=== PATIENT | female | born 1935 | race Caucasian/White ===

== ENCOUNTER 2019-05-12 10:20 | Inpatient (IN) ==
[2019-05-12] MEDS ORDERED: ATIVAN ONE (10:33)
[2019-05-12] MEDS ORDERED: ATIVAN IV ONE ×2 (10:44→10:45)
--- NOTE | 2019-05-12 10:55 | Diag Imaging Result Doc PS360 ---
EXAM: CT HEAD W/O CONTRAST 05/12/2019 HISTORY: ams TECHNIQUE: This exam was performed using automated exposure control, adjustment of mA or kV according to patient size, and/or use of iterative reconstruction technique. COMMENT: There is cortical encephalomalacia in the right parietal lobe and extensive abnormal lucency throughout the white matter of both cerebral hemispheres. There is no evidence of mass effect. There is a small amount of blood in a sulcus medially over the right parietal convexity. This was not present on 02/03/2018. The encephalomalacic changes were present previously however. The visualized paranasal sinuses are clear. The calvarium is intact. 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 This is presumably congenital. IMPRESSION: Chronic ischemic changes. A small focus of subarachnoid blood is present in the right parietal convexity of uncertain significance. This was not present previously. The findings were discussed with Kristopher Ruiz DO at 05/12/2019 10:52 AM. Electronically signed by Lam Angel 05/12/2019 10:53 AM
[2019-05-12] MEDS ORDERED: NICODERM PATCH TD ONE (11:20)
[2019-05-12 11:47] LABS: EOS# 0.02 X1000 (0.0-0.7); EOS% 0.3 % (0.0-10.0); HEMATOCRIT 36.9 % (37.0-47.0); HEMOGLOBIN 11.5 g/dL (12.0-16.0); LYMPH# 1.76 X1000 (1.2-3.4); LYMPH% 22.4 % (20.5-51.1); MCHC 31.2 g/dL (33-37); MCV 96.3 FL (81-99); MONO% 7.7 % (1.7-9.3); MPV 11.6 FL (7.4-10.4); NEUT# 5.46 X1000 (1.4-6.5); NEUT% 69.6 % (42.2-75.2); PLT 102 X1000 (130-400); RBC 3.83 XMIL (4.2-5.4); RDW 16.4 % (11.5-14.5); WBC 7.84 X1000 (4.8-10.8)
[2019-05-12 12:10] LABS: URINE SOURCE CATH
[2019-05-12 12:17] LABS: BILIRUBIN URINE NEGATIVE (NEGATIVE); BLOOD URINE NEGATIVE (NEGATIVE); COLOR STRAW; GLUCOSE URINE NEGATIVE (NEGATIVE); KETONE URINE NEGATIVE (NEGATIVE); LEUKOCYTES URINE LARGE (NEGATIVE); NITRITE URINE NEGATIVE (NEGATIVE); PROTEIN URINE NEGATIVE (NEGATIVE); SP GRAVITY URINE 1.012; TURBIDITY URINE CLEAR (CLEAR); UROBILINOGEN URINE NORMAL (NORMAL)
[2019-05-12 12:19] LABS: UR EPITHELIAL CELLS <10 /HPF (<10); URINE BACTERIA NEGATIVE /HPF; URINE RBC <10 /HPF (<10); URINE WBC 20-40 /HPF (<10)
--- NOTE | 2019-05-12 12:27 | PROVIDER DOCUMENTATION ---
This chart was entered by Arpit Campos Scribe, acting as scribe for Kristopher Ruiz DO. HPI-Neurological Disorder - General Stated Complaint: Stroke Like Symptoms Time Seen by Provider: 05/12/19 10:24 Source: family, EMS Unable to obtain history due to:: altered Allergies/Adverse Reactions: Patient Allergies Allergy/AdvReac Type Severity Reaction Status Date / Time amoxicillin trihydrate * AdvReac Mild YEAST Verified 10/03/12 12:33 [From Amoxil] INFECTION azithromycin [From Zithromax] AdvReac Mild YEAST Verified 10/03/12 12:33 INFECTION doxycycline AdvReac Mild YEAST Verified 10/03/12 12:33 INFECTION minocycline [Minocycline] AdvReac Mild YEAST Verified 10/03/12 12:33 INFECTION oxaprozin [From Daypro] AdvReac Mild YEAST Verified 10/03/12 12:33 INFECTION Home Medications: Home Medication List Medication Instructions Recorded Confirmed Last Taken Type Escitalopram [Lexapro] 10 mg PO DAILY 10/03/12 02/03/18 10/03/12 07:00 History Hydrocodone/Acetaminophen [Lortab 1 each PO Q8H PRN 10/03/12 02/03/18 08/24/12 History 7.5-500 Tablet] Simvastatin 40 mg PO DAILY 10/03/12 02/03/18 10/03/12 07:00 History Aspirin [Kalyn Chewable Aspirin] 81 mg PO DAILY 02/03/18 02/03/18 Unknown History Donepezil [Aricept] 10 mg PO DAILY 02/03/18 02/03/18 Unknown History Furosemide [Lasix] 20 mg PO DAILY 02/03/18 02/03/18 Unknown History Gabapentin [Neurontin] 300 mg PO BID 02/03/18 02/03/18 Unknown History Iron,Carbonyl/Ascorbic Acid [Fe C 1 each PO DAILY 02/03/18 02/03/18 Unknown History Tablet] Magnesium Oxide [Magnesium] 500 mg PO BID 02/03/18 02/03/18 Unknown History Metoprolol Tartrate 25 mg PO DAILY 02/03/18 02/03/18 Unknown History Mv-Mn/Iron/Folic Acid/Herb 190 1 each PO DAILY 02/03/18 02/03/18 Unknown History [Vitamin D3 Complete Caplet] Spironolactone [Aldactone] 25 mg PO EVERY OTHER DAY 02/03/18 02/03/18 Unknown History ATORVAstatin [Lipitor] 40 mg PO QHS 30 Days #30 tab 02/05/18 Unknown Rx Clopidogrel [Plavix] 75 mg PO DAILY 30 Days #30 tab 02/05/18 Unknown Rx - History of Present Illness-Neuro Nature of Presenting Problem: Pt is a 83 yo F brought to the ED by EMS. EMS reports the call came in at 0928 for a possible TIA. Report is the pt has had mulitple TIA's and this is how she acts when she is having one. EMS reports when on scene pt was GCS of 3 with some posturing and pin point pupils. He did report giving 2mg of Naercan with not change in symptoms. EMS says he did notice some incontinence and once in the truck pt did defecate on her self. Review of Systems - Adult - REVIEW OF SYSTEMS - ADULT ROS:: unobtainable per condition Constitutional: reports: no symptoms reported Past History - Adult - PAST MEDICAL HISTORY-ADULT Review of Records: reports: Old Records Reviewed, Nursing Assessment Review, Medications Reviewed Cardiovascular: reports: CAD, HTN Musculoskeletal: reports: osteoporosis Neurological: reports: dementia, TIA - PRIOR SURGERIES/PROCEDURES Surgical/Procedure History: reports: cardiac stent - IMMUNIZATION STATUS Childhood Immunizations: See Nurse Assessment Flu Vaccine: See Nurse Assessment - SOCIAL HISTORY Smoking: cigarettes, less than 1 pack/day Substance Use: none/never Living Situation: family Physical Exam- Neurological - Physical Exam-Neuro Initial Vital Signs Reviewed: Yes General Appearance: negative: appears well, alert (On arrival pt was awake shaking her upper extremities saying help and purposefully pinching with her right hand After 2mg Ativan pt did state her name. After an additional 2mg of Ativan the movement of upper extremites stopped.) Eye Exam: bilateral eye: abnormal pupil (pin point) HENMT: moist mucous membranes (some blood around mouth.), other (tounge has a bit kay) Head Injury: no evidence of injury. negative: active bleeding Neck: full range of motion, normal inspection Respiratory: lungs clear (O2 SAT 99% on 5 liters), normal breath sounds, no pleuratic chest pain, no respiratory distress, no accessory muscle use Cardiovascular: normal peripheral pulses, regular rate, rhythm Abdominal Exam: non tender, soft, other (Pt had defecated wearing a diaper.) Extremity: no pedal edema. negative: normal inspection (Pt was moving upper extremites with weakness to the left. Lower extremites were not moving), deformity stock room manager Exam: normal hearing. negative: normal speech, PERRL Coordination/Gait: negative: normal finger to nose, normal gait Motor/Sensory: negative Babinski's sign, weak motor strength LUE Neurologic: negative: grossly normal, no motor/sensory deficits Integumentary: normal color, normal turgor, warm/dry Psych/Mental Status: disoriented x 3. negative: normal mood/affect, oriented x 3 Progress - PLAN OF CARE/RESULTS Progress/Plan/Lab Results: Vital Signs - 8 hr 05/12/19 10:22 05/12/19 10:39 Pulse Rate 85 Respiratory Rate 27 H Blood Pressure 141/82 O2 Sat by Pulse Oximetry 85 L 99 Laboratory Results - last 24 hr 05/12/19 05/12/19 05/12/19 10:30 10:30 10:50 WBC 7.84 RBC 3.83 L Hgb 11.5 L Hct 36.9 L MCV 96.3 MCH 30.0 MCHC 31.2 L RDW Std Deviation 16.4 H Plt Count 102 L MPV 11.6 H Immature Gran % (Auto) 0.0 Neut % (Auto) 69.6 Lymph % (Auto) 22.4 Emery % (Auto) 7.7 Eos % (Auto) 0.3 Baso % (Auto) 0.0 Immature Gran # (Auto) 0.00 Neut # (Auto) 5.46 Lymph # (Auto) 1.76 Emery # (Auto) 0.60 H Eos # (Auto) 0.02 Baso # (Auto) 0.00 POC Glucose 137 H D Cbm-G-Pxftxwwsqyp Pept 301 Urine Source Urine Color Urine Turbidity Urine pH Ur Specific [place] Urine Protein Ur Glucose (Stick) Ur Ketones (Stick) Urine Blood Urine Nitrite Urine Bilirubin Urobilinogen Dipstick Urine Leukocytes Urine WBC (Auto) Urine RBC (Auto) U Epithel Cells (Auto) Urine Bacteria (Auto) 05/12/19 11:27 WBC RBC Hgb Hct MCV MCH MCHC RDW Std Deviation Plt Count MPV Immature Gran % (Auto) Neut % (Auto) Lymph % (Auto) Emery % (Auto) Eos % (Auto) Baso % (Auto) Immature Gran # (Auto) Neut # (Auto) Lymph # (Auto) Emery # (Auto) Eos # (Auto) Baso # (Auto) POC Glucose Yov-Y-Zhxzolehgiy Pept Urine Source CATH Urine Color STRAW Urine Turbidity CLEAR Urine pH 6.0 Ur Specific [place] 1.012 Urine Protein NEGATIVE Ur Glucose (Stick) NEGATIVE Ur Ketones (Stick) NEGATIVE Urine Blood NEGATIVE Urine Nitrite NEGATIVE Urine Bilirubin NEGATIVE Urobilinogen Dipstick NORMAL Urine Leukocytes LARGE A Urine WBC (Auto) 20-40 A Urine RBC (Auto) <10 U Epithel Cells (Auto) <10 Urine Bacteria (Auto) NEGATIVE Orders Category Date Time Status Rodney Cath Insertion ORDERED Care 05/12/19 11:30 Active Resuscitation Status Routine Care 05/12/19 12:23 Ordered Palliative Care Consult [OM.CSS] Routine Cons 05/12/19 12:[address] HEAD W/O CONTRAST [CT] Stat Exams 05/12/19 10:32 Completed CBC WITH ELECTRONIC DIFF [HEME] Stat Lab 05/12/19 10:30 Completed CK PROFILE [SP CHEM] Stat Lab 05/12/19 10:30 Received COMPREHENSIVE METABOLIC PANEL [CHEM] Stat Lab 05/12/19 10:30 Received PRO B-NATRIURETIC PEPTIDE Stat Lab 05/12/19 10:30 Completed UA [URINALYSIS W/POSS RFLX CULT] [URINALYSIS] Stat Lab 05/12/19 11:27 Completed Lorazepam [Ativan] Med 05/12/19 10:33 Discontinued 2 mg .ROUTE .STK-MED ONE Lorazepam [Ativan] Med 05/12/19 10:44 Discontinued 2 mg IV NOW ONE Lorazepam [Ativan] Med 05/12/19 10:45 Discontinued 2 mg IV NOW ONE Nicotine Patch [Nicoderm Patch] Med 05/12/19 11:20 Discontinued 21 mg TD NOW ONE Family reports to the physician pt is a DNR and says no heroic life saving measures. Result Diagrams: 05/12/19 10:30 - REASSESSMENT Reassessment #1 Time Reassessed: 11:13 (Pupil equal: no shift, sluggish.) Status: unchanged Reassessment #2 Time Reassessed: 11:18 Status: unchanged (I have informed the family of the small bleed. want supportive measures only) - CT/MRI 1 CT Study: Head Impression: Abnormal (EXAM: CT HEAD W/O CONTRAST 05/12/2019 HISTORY: ams TECHNIQUE: This exam was performed using automated exposure control, adjustment of mA or kV according to patient size, and/or use of iterative reconstruction technique. COMMENT: There is cortical encephalomalacia in the right parietal lobe and extensive abnormal lucency throughout the white matter of both cerebral hemispheres. There is no evidence of mass effect. There is a small amount of blood in a sulcus medially over the right parietal convexity. This was not present on 02/03/2018. The encephalomalacic changes were present previously however. The visualized paranasal sinuses are clear. The calvarium is intact. 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 This is presumably congenital. IMPRESSION: Chronic ischemic changes. A small focus of subarachnoid blood is present in the right parietal convexity of uncertain significance. This was not present previously. The findings were discussed with Kristopher Ruiz DO at 05/12/2019 10:52 AM. Electronically signed by Lam Angel 05/12/2019 10:53 AM 05/12/19 1053 Interpreting Physician: Lam Angel MD Dictated Date/Time: 05/12/19 1046 cc: Kristopher Ruiz DO; Juliana Corona MD), See EMR Report - CONSULTS/PCP/HOSPITALIST Notification #1 *Consult/PCP/Hospitalist*: Hospitalist: Accepts: Ayaz Time Discussed: 12:20 (Spoke with Martha) Reason/Comments: Admission Consult Disposition: Will see in ED Departure - Departure Date of Disposition Decision: 05/12/19 Time of Disposition Decision: 12:26 DIAGNOSIS: CVA (cerebral vascular accident) Qualifiers: CVA mechanism: thrombosis Precerebral and cerebral artery: anterior cerebral artery Laterality of affected vessel: right Qualified Code(s): 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 Attestation - Physician/ CATHERINE Attestation Patient care was provided by Advanced Practice Provider:: No The physician spent face to face time with patient:: Yes Advanced Practice Provider documentation review:: Supervising physician onsite and consulted in the evaluation and care of this patient. The physician did have a face to face encounter with the patient. This chart was documented by the indicated scribe, (Arpit Campos Scribe) and accurately reflects the services I performed and decisions made by Sara thompson Thomas E., DO, as attested by the provider's signature.
[2019-05-12] MEDS ORDERED: ZOFRAN IV PRN (12:54)
--- NOTE | 2019-05-12 13:19 | HISTORY AND PHYSICAL ---
HISTORY OF PRESENT ILLNESS: Ms. Leone apparently had a seizure or syncopal episode. Incontinent of bowel and bladder. Brought to the emergency room. The CT scan of the head suggested possible subarachnoid bleed in the right parietal convexity. Family would like to keep her here, keep her comfortable, no code level 1. PAST MEDICAL HISTORY: 1. Coronary artery disease. 2. COPD. 3. Hypertension. 4. History of supraventricular tachycardia. 5. Last admission I think was 02/03/2018. 6. Had a stent placed in LAD in 2002. Heart catheterization 2006 showed mild coronary artery disease, 50% stenosis of the 2nd diagonal branch of the LAD. SOCIAL HISTORY: , has 3 sons. She apparently had a history of TIA's in the past. ALLERGIES: Doxycycline, amoxicillin, Daypro. FAMILY HISTORY: Noncontributory according to old records. REVIEW OF SYSTEMS: Unable to get any review of systems. EXAM: General: She does try to open her eyes and does respond to voice and touch. Vital Signs: Pulse is 85, respirations 27, blood pressure 147/82. HEENT: Pupils are equal and round. CVP less than 6 cm. Lungs: Clear in all lung ferguson. Cardiovascular: Regular rhythm and rate without murmur or S3. Abdomen: Soft. Skin: Warm and dry. LABORATORY DATA: White count 7840, hematocrit is 36, platelet count 102,000. Urinalysis unremarkable. IMAGING STUDIES: CT of the head: Chronic ischemic changes, small focus of subarachnoid blood present in the right parietal convexity, uncertain significance. ASSESSMENT AND PLAN: Subarachnoid bleed. Seizure activity reported. Suspect tonic clonic seizure. She appears comfortable at the present time. Continue comfort measures. Looking at lab, her electrolytes are still pending. CBC fairly unremarkable. She has a mild anemia which is normocytic. MEDICATIONS: Lipitor 40 mg a day, aspirin 81 mg a day, Plavix 75 mg a day, Aricept 10 mg a day, Lexapro 10 mg a day, Lasix 20 mg a day, Neurontin 300 mg p.o. b.i.d., Lortab 7.5 q. 8 hours p.r.n., iron carbonyl/ascorbic acid combination 1 a day, magnesium 500 mg p.o. b.i.d., metoprolol 25 mg a day, multivitamin, simvastatin 40 mg a day and spironolactone. I think at this point she is obtunded and not swallowing, and we will hold all of her medicines. We will see if they desire a hospice consult or hospice evaluation maybe for inpatient. cc: Francisco Bradley MD
--- NOTE | 2019-05-12 13:25 | PROGRESS NOTE ---
DATE: 05/12/2019 ADDENDUM REPORT I met with 3 of her sons, and they describe her as having an episode starting with the left arm twitching and flailing and then rigidity in the body and loss of consciousness. She says she feels bad. Said she has had 4 or 5 of these episodes. Following that, she is lethargic and very sleepy at this time. She had incontinence of the bowel and bladder. So I suspect she is having a partial complex seizure, and we will put her on some Keppra. I explained this to them. Otherwise, go for comfort measures, and we will get an EEG on Tuesday. We will follow up with her electrolytes. I do not think those have come back yet. cc: Francisco Bradley MD
[2019-05-12 13:29] LABS: AGAP 12; ALB/GLOB RATIO 1.5; ALBUMIN 3.5 g/dL (3.5-5.0); ALKALINE PHOSPHATASE 64 U/L (32-104); BUN 9 mg/dL (8-22); CALCIUM 8.8 mg/dL (8.8-10.2); CHLORIDE 104 mmol/L (98-107); CK PROFILE 106 U/L (24-173); COSMO 279; CREATININE 0.6 mg/dL (0.5-0.9); ESTIMATED GFR > 60; GLUCOSE 88 mg/dL (70-104); GOT 13 U/L (10-30); GPT 7 U/L (10-36); POTASSIUM 3.1 mmol/L (3.5-5.1); SODIUM 141 mmol/L (136-145); TCO2 25 mmol/L (25-35); TOTAL BILIRUBIN 0.25 mg/dL (0.20-1.00); TOTAL PROTEIN 5.8 g/dL (6.3-8.3)
[2019-05-12] MEDS: KEPPRA 500 MG in NS 100 ML IV SCH (13:42)
[2019-05-12] MEDS: DUONEB (A & A) INH PRN (15:28)
--- NOTE | 2019-05-12 18:17 | EKG Report ---
Test Performed on : 05/12/2019 10:55:11 AM Test Reason : brain bleed Blood Pressure : / mmHG Vent. Rate : 069 BPM Atrial Rate : 069 BPM P-R Int : 160 ms QRS Dur : 074 ms QT Int : 420 ms P-R-T Axes : 016 014 116 degrees QTc Int : 450 ms Sinus rhythm. with premature atrial complexes. Cannot rule out Anterior infarct , age undetermined ST & T wave abnormality, consider lateral ischemia Abnormal ECG When compared with ECG of 03-FEB-2018 11:40, premature atrial complexes. are now present T wave inversion less evident in Anterior leads Unconfirmed Result
[2019-05-12] MEDS: MORPHINE IV PRN ×2 (18:57→21:36)
[2019-05-12] MEDS: ATIVAN IV PRN (23:10)
[2019-05-13] MEDS: KEPPRA 500 MG in NS 100 ML IV SCH ×2 (00:43→12:27)
[2019-05-13 08:42] LABS: AGAP 11; ALB/GLOB RATIO 1.3; ALBUMIN 3.4 g/dL (3.5-5.0); ALKALINE PHOSPHATASE 63 U/L (32-104); BUN 5 mg/dL (8-22); CALCIUM 8.9 mg/dL (8.8-10.2); CHLORIDE 105 mmol/L (98-107); COSMO 285; CREATININE 0.5 mg/dL (0.5-0.9); ESTIMATED GFR > 60; GLUCOSE 87 mg/dL (70-104); GOT 17 U/L (10-30); GPT 7 U/L (10-36); MAGNESIUM 1.5 mg/dL (1.5-2.7); POTASSIUM 2.7 mmol/L (3.5-5.1); SODIUM 145 mmol/L (136-145); TCO2 29 mmol/L (25-35); TOTAL BILIRUBIN 0.32 mg/dL (0.20-1.00)
[2019-05-13 08:47] LABS: BASO# 0.01 X1000 (0.0-0.2); BASO% 0.1 % (0.0-0.8); EOS# 0.05 X1000 (0.0-0.7); EOS% 0.4 % (0.0-10.0); HEMATOCRIT 40.2 % (37.0-47.0); HEMOGLOBIN 12.6 g/dL (12.0-16.0); LYMPH# 1.35 X1000 (1.2-3.4); LYMPH% 11.1 % (20.5-51.1); MCH 29.5 PG (27-31); MCHC 31.3 g/dL (33-37); MCV 94.1 FL (81-99); MONO# 0.95 X1000 (0.11-0.59); MONO% 7.8 % (1.7-9.3); MPV 11.5 FL (7.4-10.4); NEUT# 9.75 X1000 (1.4-6.5); NEUT% 80.6 % (42.2-75.2); PLT 69 X1000 (130-400); RBC 4.27 XMIL (4.2-5.4); WBC 12.11 X1000 (4.8-10.8)
[2019-05-13] MEDS: MORPHINE IV PRN ×3 (08:56→19:33)
[2019-05-13] MEDS ORDERED: NICODERM PATCH TD ONE (10:37)
--- NOTE | 2019-05-13 10:51 | PROGRESS NOTE ---
DATE: 05/13/2019 SUBJECTIVE: She is much more awake and alert. She is hungry, so will try and give her a soft diet. She has remained afebrile. OBJECTIVE: Neurologic: She is moving all extremities. She is awake. She is answering questions appropriately. Vital Signs: Temp 98.6 degrees, pulse 62, respirations 16, blood pressure 141/52. HEENT: Pupils are equal and round. Lungs: Clear in all lung ferguson. Cardiovascular: Regular rhythm and rate without murmur or S3. Abdomen: Soft. Skin: Warm and dry. Urine output is 3300 mL. ASSESSMENT AND PLAN: CT of her head that they did yesterday without contrast shows chronic ischemic changes. A small focus of subarachnoid blood is present in the right parietal convex of uncertain significance. This was not previously noted on comparison study, which I think was 02/03/2018. She does not have anything focal, but her description when she gets these spells is that she will start having tonic activity in the left arm, and then she will be very lethargic throughout the day, be very confused, disoriented, so I have started her on some Keppra, and will see if that helps. Will give her some soft diet, see how we are doing, and then get Physical Therapy and Occupational Therapy to work with her. I will switch her Keppra over to p.o. Will see how she does with soft diet. cc: Francisco Bradley MD
[2019-05-13] MEDS: DUONEB (A & A) INH PRN ×3 (11:12→19:45)
[2019-05-13] MEDS: ATIVAN IV PRN ×2 (16:19→20:19)
[2019-05-13] MEDS: CARDIZEM PO SCH ×2 (17:40→20:10)
[2019-05-13] MEDS ORDERED: CARDIZEM PO SCH (20:00)
[2019-05-14] MEDS: CARDIZEM PO SCH ×6 (01:48→22:47)
[2019-05-14] MEDS: KEPPRA 500 MG in NS 100 ML IV SCH ×2 (01:48→14:11)
[2019-05-14] MEDS: NICODERM PATCH TD SCH (08:07)
[2019-05-14 08:24] LABS: ESTIMATED GFR > 60
[2019-05-14 08:29] LABS: AGAP 15; BUN 5 mg/dL (8-22); CALCIUM 9.2 mg/dL (8.8-10.2); CHLORIDE 100 mmol/L (98-107); COSMO 282; CREATININE 0.5 mg/dL (0.5-0.9); GLUCOSE 92 mg/dL (70-104); MAGNESIUM 1.6 mg/dL (1.5-2.7); SODIUM 143 mmol/L (136-145); TCO2 28 mmol/L (25-35)
[2019-05-14 08:33] LABS: POTASSIUM 2.5 mmol/L (3.5-5.1)
[2019-05-14] MEDS ORDERED: KLOR-CON PO ONE ×2 (08:54→15:00)
--- NOTE | 2019-05-14 09:25 | PROGRESS NOTE ---
DATE: 05/14/2019 SUBJECTIVE: Ms. Leone was agitated, confused, given some Ativan, and she is sleeping. This morning she refused her breakfast. She is still pretty lethargic. OBJECTIVE: Vital Signs: Temperature 98.0 degrees, pulse 108, respirations 20, blood pressure 148/86. Eyes: Pupils are equal. Neck: No distended neck veins. Lungs: Lungs are clear in all lung ferguson. Cardiovascular exam: Regular rhythm and rate without murmur or S3. Abdomen: Abdomen is soft, nondistended. Extremities: No pedal edema. : Urine output is 2400 mL. She still has her Rodney catheter in. ASSESSMENT AND PLAN: 1. 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 I have started her on Keppra, and she has not had any seizure activity since she has been in the hospital. I think she did have some what appeared to be postictal lethargy, and I think she is still very tired. 2. Need to get her back on her home medications. 3. Underlying dementia with delirium, usually made worse when she is in the hospital. A CT of her head that we did on admission showed a possible subarachnoid bleed, but neurologically I do not know if that has really changed anything. REVIEW OF HER ORDERS: We put her on Cardizem 30 mg p.o. q. 6 hours and she is on levetiracetam 500 mg IV q. 12 hours. She received 2 mg IV of Ativan, and looking at her medications, she is on melatonin. We will continue that. She is on aspirin 81 mg a day. She is on Plavix 75 mg a day, which will resume. Her Aricept 10 mg a day, Lexapro 10 mg a day, furosemide she takes just to 10 mg a day; we will continue that. Gabapentin 300 mg t.i.d., and we will hold her hydrocodone for now. She is on iron carbonyl, ascorbic acid take once a day, magnesium oxide and we will put her back on it. Metoprolol 25 mg twice a day vitamin D with iron and folic acid and simvastatin. We are going to discontinue her Rodney catheter. We are going to get physical therapy and occupational therapy to see how we do moving around. Hopefully, we can go home soon. cc: Francisco Bradley MD
[2019-05-14] MEDS: ICAR-C PO SCH (10:44)
[2019-05-14] MEDS: LOPRESSOR PO SCH ×2 (10:44→22:47)
[2019-05-14] MEDS: LASIX PO SCH (10:44)
[2019-05-14] MEDS: LEXAPRO PO SCH (10:44)
[2019-05-14] MEDS: PLAVIX PO SCH (10:44)
[2019-05-14] MEDS: ASPIRIN PO SCH (10:45)
[2019-05-14] MEDS: ARICEPT PO SCH (10:45)
[2019-05-14] MEDS: NEURONTIN PO SCH ×4 (10:46→22:47)
[2019-05-14] MEDS: MAGNESIUM GLUCONATE PO SCH ×2 (14:19→22:47)
[2019-05-14] MEDS: THERA M PLUS PO SCH (14:24)
[2019-05-14] MEDS: MELATONIN PO SCH (22:46)
[2019-05-14] MEDS: ZOCOR PO SCH (22:47)
[2019-05-15] MEDS: MORPHINE IV PRN (01:39)
[2019-05-15] MEDS: KEPPRA 500 MG in NS 100 ML IV SCH ×2 (01:48→12:15)
[2019-05-15] MEDS: CARDIZEM PO SCH ×5 (05:09→20:37)
[2019-05-15] MEDS: LASIX PO SCH (08:42)
[2019-05-15] MEDS: NEURONTIN PO SCH ×3 (08:42→20:37)
[2019-05-15] MEDS: NICODERM PATCH TD SCH (08:42)
[2019-05-15] MEDS: LEXAPRO PO SCH (08:42)
[2019-05-15] MEDS: LOPRESSOR PO SCH ×2 (08:43→20:36)
[2019-05-15] MEDS: MAGNESIUM GLUCONATE PO SCH ×2 (08:43→20:36)
[2019-05-15] MEDS: ASPIRIN PO SCH (08:43)
[2019-05-15] MEDS: ICAR-C PO SCH (08:43)
[2019-05-15] MEDS: THERA M PLUS PO SCH (08:43)
[2019-05-15] MEDS: PLAVIX PO SCH (08:43)
[2019-05-15] MEDS: ARICEPT PO SCH (08:43)
[2019-05-15] MEDS ORDERED: FLU VACCINE IM ONE (08:56)
[2019-05-15] MEDS ORDERED: MAGNESIUM SULFATE 2 GM/S.W.I. 2 GM/50 ML IVPB IV ONE (09:34)
[2019-05-15] MEDS: DUONEB (A & A) INH PRN (11:12)
[2019-05-15 12:55] LABS: AGAP 13; ALB/GLOB RATIO 0.9; ALBUMIN 3.1 g/dL (3.5-5.0); ALKALINE PHOSPHATASE 77 U/L (32-104); BUN 11 mg/dL (8-22); CALCIUM 8.9 mg/dL (8.8-10.2); CHLORIDE 97 mmol/L (98-107); COSMO 277; CREATININE 0.5 mg/dL (0.5-0.9); ESTIMATED GFR > 60; GLUCOSE 141 mg/dL (70-104); GOT 19 U/L (10-30); GPT 9 U/L (10-36); POTASSIUM 3.4 mmol/L (3.5-5.1); SODIUM 138 mmol/L (136-145); TCO2 28 mmol/L (25-35); TOTAL BILIRUBIN 0.64 mg/dL (0.20-1.00); TOTAL PROTEIN 6.4 g/dL (6.3-8.3)
[2019-05-15] MEDS ORDERED: KLOR-CON PO ONE (15:14)
[2019-05-15] MEDS: POTASSIUM CHLORIDE 20 MEQ/SWI 20 MEQ/100 ML IVPB IV SCH (15:16)
--- NOTE | 2019-05-15 15:52 | PROGRESS NOTE ---
DATE: 05/15/2019 SUBJECTIVE: Today Ms. Leone refers to be feeling tired and worn out. She has not been wanting to participate with physical therapy today, I understand. OBJECTIVE: Vital signs: Blood pressure is 123/62, pulse of 73, respirations 14, temperature is 98.3 degrees. The patient is saturating 92%. General: Ms. Leone is an 83-year-old, elderly female. She is in bed. She does not seem to be in any cardiopulmonary distress. HEENT: Mucosa is pink, slightly dry. Anicteric. Acyanotic. Neck: Supple. I did not see any JVD. No carotid bruit. Chest: Good air entry bilateral. There were no crepitations, no rhonchi. Cardiovascular: Regular rate and rhythm. No murmurs. No rubs. No gallops. GI: Abdomen is soft. It is distended but nontender. Bowel sounds are present but hypoactive. Extremities: No pedal edema. DRILLER AND BROACHER: Patient is quite drowsy. You kind of have to talk to her multiple times to get her attention to do basic things. LABORATORY DATA: Sodium is 138, potassium is 3.4. Rest of chemistry is unremarkable. So far, the urine is showing Enterococcus faecalis from the 18th which is group D. CURRENT MEDICATIONS: Have all been reviewed. ASSESSMENT: 1. Altered mental status on presentation with abnormal movement of the left upper extremity, questionable shaking. Unsure if patient was having any form of seizures. She has been started on some Keppra. We will get an EEG and get Neurology to also see her. 2. Possible underlying dementia. 3. Electrolyte abnormality including hypokalemia and hypomagnesemia. We will continue to replace this. 4. Clinical volume depletion. Will continue with IV fluids. 5. Thrombocytopenia. That seems to be chronic. We will continue to follow. 6. Enterococcus faecalis in the urine. Ms. Leone is altered. Unsure if she was having any symptoms per se but because she is not able to give me any interim history, I think it is reasonable to treat her just to make sure this is not causing some of her altered mental status. 7. Previous history of right-sided middle cerebral artery territory infarct with remarkable encephalomalacia in the brain. cc: Edward Jacome MD
[2019-05-15] MEDS: D5 1/2 NS + KCL 20 MEQ 1,000 ML IV SCH (17:15)
--- NOTE | 2019-05-15 20:11 | CONSULTATION ---
DATE OF CONSULTATION: 05/15/2019 REASON FOR CONSULT: Seizure. HISTORY OF PRESENT ILLNESS: This is an 83-year-old female with a history of hypertension, coronary disease, SVT and TIA. She was admitted on 05/12/2019 after having an apparent seizure or syncopal episode. History is from chart review, as the patient is not a good historian and no family is currently available. It sounds as though EMS was called and the patient was poorly responsive. There was incontinence. Head CT showed a small amount of subarachnoid blood in the right parietal convexity. Family had opted to keep her here and keep her comfortable. They also reported that the patient has had in total about 4 or 5 episodes that started with left arm twitching and flailing and then rigidity of the body and loss of consciousness. She was lethargic and sleepy afterwards. There was incontinence of bowel and bladder. The patient was placed on Keppra. There have not been further events since hospitalized. She has actually become more awake during her stay. PAST MEDICAL HISTORY: 1. Coronary disease. 2. Hypertension. 3. Supraventricular tachycardia. 4. COPD. 5. TIA. 6. Reported dementia. FAMILY HISTORY: Noncontributory. SOCIAL HISTORY: She is . She has 3 sons. ALLERGIES: Reviewed in the chart. Multiple. CURRENT MEDICATIONS: Include levetiracetam 500 mg, q.12 hours p.r.n., lorazepam last dose 2 mg on the . REVIEW OF SYSTEMS: Balance of 12 conducted and otherwise negative except that detailed in the HPI. PHYSICAL EXAMINATION: Vital Signs: Temperature current 100.9. Blood pressure 141/82 on admission, current 135/91, pulse 70s to 80s. Neurologic: Ms. Leone is supine in bed. An EEG leads are being placed. She is awake and alert. She is not always attentive. She is a poor historian; and at times requires some redirecting. She follows simple commands. No language disturbance seen on bedside testing. No significant dysarthria. Her voice is raspy. Left pupil is 2 mm and reactive. Right pupil is about 2.5 mm and reactive. Gaze is conjugate. Ocular movements appear to be full. Face symmetric with equal activation. Facial sensation reported intact. Tongue is midline. She can hear. She feebly shrugs her shoulders. Her power appears to be relatively preserved in the limbs without obvious focal deficit. She does not participate well during strength testing. [id number] is intact on the right. On the left, she does not participate as readily. Reflexes are trace at the wrists, absent at the ankles. No clonus. Plantar response is silent. She responds to sensory stimulus in all extremities. I did not test her gait. DIAGNOSTICS: Head CT noncontrast, personally reviewed. There is an area of encephalomalacia within the right parietal lobe. There is also a small focus of subarachnoid blood in the right parietal convexity. LABS: Reviewed in the chart. White count 12. BUN and creatinine normal. AST and ALT normal. Calcium and magnesium normal. Normal sodium. Urine culture has been sent and is growing enterococcus. ASSESSMENT AND PLAN: Concern for seizures, though the timing of the events is unclear. She has been placed on Keppra and I would continue that dosage for now. An EEG has been ordered and I will review that. I would also recommend MRI and MRA of the brain. Thank you for the consultation. cc: Kavya Castellano MD [facility]
[2019-05-15] MEDS: MELATONIN PO SCH (20:36)
[2019-05-15] MEDS: ZOCOR PO SCH (20:37)
[2019-05-16] MEDS: KEPPRA 500 MG in NS 100 ML IV SCH ×2 (02:35→13:22)
[2019-05-16] MEDS: CARDIZEM PO SCH ×4 (02:39→21:56)
[2019-05-16] MEDS: LEVAQUIN 250 MG/D5W 250 MG/50 ML IVPB IV SCH (06:50)
[2019-05-16] MEDS: D5 1/2 NS + KCL 20 MEQ 1,000 ML IV SCH (06:52)
[2019-05-16 07:49] LABS: HEMATOCRIT 39.1 % (37.0-47.0); HEMOGLOBIN 12.4 g/dL (12.0-16.0); MCH 30.3 PG (27-31); MCHC 31.7 g/dL (33-37); MCV 95.6 FL (81-99); RBC 4.09 XMIL (4.2-5.4); RDW 16.7 % (11.5-14.5); WBC 16.07 X1000 (4.8-10.8)
[2019-05-16] MEDS: NEURONTIN PO SCH ×3 (08:16→21:57)
[2019-05-16] MEDS: ICAR-C PO SCH (08:17)
[2019-05-16] MEDS: ARICEPT PO SCH (08:17)
[2019-05-16] MEDS: THERA M PLUS PO SCH (08:17)
[2019-05-16] MEDS: MAGNESIUM GLUCONATE PO SCH ×2 (08:17→21:57)
[2019-05-16] MEDS: ASPIRIN PO SCH (08:17)
[2019-05-16] MEDS: LOPRESSOR PO SCH ×2 (08:17→21:58)
[2019-05-16] MEDS: PLAVIX PO SCH (08:17)
[2019-05-16] MEDS: LEXAPRO PO SCH (08:18)
[2019-05-16] MEDS: NICODERM PATCH TD SCH (08:18)
[2019-05-16 08:36] LABS: AGAP 9; BUN 14 mg/dL (8-22); CALCIUM 8.9 mg/dL (8.8-10.2); CHLORIDE 98 mmol/L (98-107); COSMO 274; CREATININE 0.5 mg/dL (0.5-0.9); ESTIMATED GFR > 60; GLUCOSE 132 mg/dL (70-104); PHOSPHORUS 2.1 mg/dL (2.7-4.5); POTASSIUM 3.6 mmol/L (3.5-5.1); SODIUM 136 mmol/L (136-145); TCO2 29 mmol/L (25-35)
--- NOTE | 2019-05-16 11:50 | PROGRESS NOTE ---
DATE: 05/16/2019 SUBJECTIVE: This morning, Ms. Leone refers to be doing well. She denies any new complaints. She just says she had a large bowel movement early on today. OBJECTIVE: Vital signs: Blood pressure is 139/69, pulse of 79, respirations 14 and temperature is 99.8 degrees. Patient is saturating 94 on room air. General exam: Ms. Leone is an 83-year- old, elderly female. She is in bed. She does not seems to be in any cardiopulmonary distress. HEENT: Mucosa is pink, slightly dry. Anicteric. Acyanotic. Neck: Supple. Chest: Good air entry bilaterally. I did not hear any crackles. No wheezing. Cardiovascular: Regular rate and rhythm. No murmurs, no rubs, no gallops. GI/Abdomen: Soft. Bowel sounds present. No hepatosplenomegaly. Extremities: No pedal edema. Central nervous system: Patient is awake, alert, follows basic commands, and she did not have any deficits. LABORATORY DATA: WBC is 16.07, hemoglobin is 12.4, platelet count of 93. Chemistry is also reviewed, unremarkable. X-RAY DATA: No recent imaging studies. The patient is pending an MRI. ASSESSMENT: 1. Altered mental status on presentation with a large abnormal movement of the left upper extremity, questionable for seizures. The patient was empirically started on Keppra. An electroencephalogram and magnetic resonance imaging have been ordered. Neurology has been consulted. 2. Dementia noted. 3. Electrolyte abnormality including hypokalemia and hypomagnesemia. We will continue to replace. 4. Clinical volume depletion improving. 5. Enterococcal faecalis urinary tract infection. The patient is on Levaquin. 6. Encephalomalacia on the right hemispheric cortex with encephalomalacia on imaging studies noted. PLAN: So, in general, I think Ms. Leone is clinically stable. She has not had any more abnormal shaking of her right upper extremity. She has been evaluated by Neurology. We will continue with the Keppra. We will continue also doing her neurological workup. She was a potential discharge to a rehab. 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 cc: Edward Jacome MD
[2019-05-16] MEDS: NEUTRA-PHOS PO SCH ×3 (13:23→21:57)
--- NOTE | 2019-05-16 14:03 | Diag Imaging Result Doc PS360 ---
EXAM: MRI BRAIN W/WO CONTRAST 05/16/2019 HISTORY: seizures TECHNIQUE: Sagittal and axial T1, post gadolinium in enhanced axial T1 and coronal reformation, axial T2, FLAIR, DWI and coronal gradient echo. COMMENT: The current study is compared with the previous examination of 02/03/2018. There is increased T2-weighted signal intensity in the mariela and midbrain and extensively over the right matter of both cerebral hemispheres. There is cortical and subcortical encephalomalacia present in the posterior right parietal lobe which was also present at the time the previous study. There is no evidence of restricted diffusion. There are no abnormal fluid collections or bleeds. There is no evidence of abnormal gadolinium enhancement. IMPRESSION: Extensive chronic ischemic change. Old right parietal infarct. Electronically signed by Lam Angel 05/16/2019 2:01 PM
--- NOTE | 2019-05-16 19:14 | EEG REPORT ---
DATE: 05/15/2019 REFERRING: Dr. Jacome. PAPER LATCHER: Kaykay Crawford. BACKGROUND INFORMATION: Technique: This is a digitally recorded routine EEG with video. HISTORY: 83-year-old female patient with question of seizure. EEG is ordered to detect evidence of seizures. Medications include p.r.n. lorazepam, Aricept, Lexapro, morphine, Neurontin. EEG FINDINGS: A posterior dominant alpha rhythm is not seen. The background at maximal alertness consists of theta more than delta slowing with some intermixed faster frequencies. No definite persistent focal slowing. No epileptiform discharges. No seizures. Hyperventilation is not performed. Photic stimulation does not alter the record. The patient becomes drowsy, but stage N2 sleep is not seen. EKG demonstrates some irregularity with the intervals. IMPRESSION AND CLINICAL CORRELATION: Abnormal routine EEG due to moderate diffuse slowing indicative of a moderate nonspecific encephalopathy. No epileptiform discharges or seizures seen on the current study. This does not rule out an underlying seizure disorder. cc: MD Edward Valencia MD MTDD
[2019-05-16] MEDS: ZOCOR PO SCH (21:57)
[2019-05-16] MEDS: MELATONIN PO SCH (21:57)
[2019-05-17] MEDS: CARDIZEM PO SCH ×4 (03:43→22:29)
[2019-05-17] MEDS: KEPPRA 500 MG in NS 100 ML IV SCH ×2 (03:43→13:15)
[2019-05-17] MEDS: LEVAQUIN 250 MG/D5W 250 MG/50 ML IVPB IV SCH (05:40)
--- NOTE | 2019-05-17 06:08 | NEUROLOGY PROGRESS NOTE ---
DATE: 05/16/2019 SUBJECTIVE: No major overnight events. There has not been report of recurrent seizure-like events. She seems to be tolerating Keppra. OBJECTIVE: T-max today is 99.8, blood pressure 124/55, and pulse 70. Ms. Leone is supine in bed. She is awake with eyes open. She is alert. She seems more attentive today. She is a bit irritable. She is not oriented to time. She does not participate at all with questions or with the exam. Pupils are equal today and nearly pinpoint but reactive. Gaze is conjugate. Full lateral eye movements. Face appears to be symmetric with equal activation. She refuses strength testing today. LABORATORY/DIAGNOSTIC: MRI of the brain with and without contrast did not show acute findings. There is the old encephalomalacia in the right parietal region. There are extensive chronic changes. EEG was personally reviewed showing moderate diffuse slowing indicative of a moderate nonspecific encephalopathy. Labs reviewed in the chart. She is being treated for UTI. ASSESSMENT AND PLAN: Presumed seizures with the description that found it to be an onset involving the left side of the body. She was started on Keppra, and has tolerated the current dosing. She is a little irritable today so we will need to monitor that. We might consider switching to a different antiepileptic medication. Seizure precautions. cc: Kavya Castellano MD
[2019-05-17] MEDS: NICODERM PATCH TD SCH (08:27)
[2019-05-17] MEDS: NEUTRA-PHOS PO SCH ×4 (08:27→22:29)
[2019-05-17] MEDS: THERA M PLUS PO SCH (08:27)
[2019-05-17] MEDS: LOPRESSOR PO SCH ×2 (08:28→22:28)
[2019-05-17] MEDS: ICAR-C PO SCH (08:28)
[2019-05-17] MEDS: ASPIRIN PO SCH (08:28)
[2019-05-17] MEDS: ARICEPT PO SCH (08:28)
[2019-05-17] MEDS: LEXAPRO PO SCH (08:28)
[2019-05-17] MEDS: MAGNESIUM GLUCONATE PO SCH ×2 (08:28→22:29)
[2019-05-17] MEDS: PLAVIX PO SCH (08:28)
[2019-05-17] MEDS: NEURONTIN PO SCH ×3 (08:38→22:28)
--- NOTE | 2019-05-17 16:58 | Diag Imaging Result Doc PS360 ---
EXAM: CHEST-PORTABLE HISTORY: Bed placement TECHNIQUE: Single view COMPARISON: 10/04/2012 FINDINGS: There is a small left pleural effusion. The heart is mildly prominent. Mild increased interstitial markings in the lung bases. IMPRESSION: Basilar atelectasis versus infiltrates Electronically signed by Shaheen Schroeder 05/17/2019 4:56 PM
[2019-05-17] MEDS: MORPHINE IV PRN ×2 (18:07→22:35)
--- NOTE | 2019-05-17 18:56 | PROGRESS NOTE ---
DATE: 05/17/2019 SUBJECTIVE: This morning Ms. Leone referred to be doing fairly okay. Did not have any new complaints. Has not had any more seizures during the hospital course. OBJECTIVE: Vital signs: Blood pressure is 117/56, pulse of 83, respirations 14, temperature 98.2 degrees. The patient is saturating 95% on room air. General: Ms. Leone is an 89-year-old lady. She is in bed, no distress. HEENT: Mucosa is pink and moist. Anicteric. Acyanotic. Neck: Supple. There is no JVD. Chest: Good air entry bilaterally. No crepitations. No rhonchi. Cardiovascular: Regular rate and rhythm. No murmurs. No rubs. No gallops. GI: Abdomen is soft, distended but nontender. Bowel sounds are present. There is no hepatosplenomegaly. : Not examined. Extremities: No pedal edema. Distal pulses are present. ACTIVITY ASSISTANT: Patient is awake, alert, oriented to person but disoriented to time and to place. Vasu Lee, however, follows basic commands and moves all extremities. Patient is eating about 75% of her meals per documentation. LABORATORY DATA: None for today. ASSESSMENT: 1. Altered mental status on presentation associated with abnormal movement of the left upper extremity, questionable for seizures. The patient has been started on Keppra. Neurology has been consulted. Both MRI and EEG have been fairly unremarkable. 2. Dementia. 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 3. 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 4. Electrolyte abnormality on presentation, replaced. 5. Clinical volume depletion, improved. 6. Enterococcal faecalis urinary tract infection. Patient is on Levaquin. Today is day 1 for a total of 5 days. PLAN: So in general, I think Ms. Leone is doing a lot better. She has not had any more shakes or any seizure activity during the hospital course. She has been evaluated twice by physical therapy during the hospital course. We are pending possible rehab placement for Ms. Leone tomorrow. cc: Edward Jacome MD
--- NOTE | 2019-05-17 20:35 | NEUROLOGY PROGRESS NOTE ---
DATE: 05/17/2019 Dr. Castellano saw Ms. Leone for initial Neurology evaluation. She has baseline dementia treated with donepezil. She had recent onset of behavior suggesting focal motor seizure involving the left arm. Workup includes imaging, brain MRI with and without contrast showing old right parietal infarction and no definite acute change. EEG showed generalized slowing. She was started on levetiracetam 500 mg b.i.d., and she appears to be tolerating that dose. Creatinine is 0.5. Hospital chart shows p.r.n. lorazepam with no dose in nearly 4 days, p.r.n. morphine with no dose in nearly 4 days. Home medicine list included gabapentin 300 mg t.i.d. If she was taking that, there would have been some slight reduced seizure risk associated with that dose. This morning, she is awake, alert, attentive, and disoriented. She denied being in the hospital. Speech is not significantly dysarthric. She has good power in the arms. She is slightly more clumsy with left [id number]-[id number] than with the right. There was a little bit of tremulousness in the left arm, but no classifiable tremor and no clonic activity noted. I do not have anything to add to Dr. Castellano's thoughts and suggestions. If there is concern for personality change, we might choose seizure medicine other than levetiracetam for longer term management. Thanks for asking Neurology to see Ms. Leone. cc: MD ROHAN Duaret III
[2019-05-17] MEDS: MELATONIN PO SCH (22:28)
[2019-05-17] MEDS: ZOCOR PO SCH (22:28)
[2019-05-18] MEDS: KEPPRA 500 MG in NS 100 ML IV SCH ×2 (01:34→13:10)
[2019-05-18] MEDS: CARDIZEM PO SCH ×3 (01:34→13:10)
[2019-05-18] MEDS: LEVAQUIN 250 MG/D5W 250 MG/50 ML IVPB IV SCH (04:31)
[2019-05-18] MEDS ORDERED: DUONEB (A & A) ONE (07:18)
[2019-05-18] MEDS: ICAR-C PO SCH (08:50)
[2019-05-18] MEDS: LEXAPRO PO SCH (08:50)
[2019-05-18] MEDS: ARICEPT PO SCH (08:50)
[2019-05-18] MEDS: LOPRESSOR PO SCH (08:50)
[2019-05-18] MEDS: MAGNESIUM GLUCONATE PO SCH (08:50)
[2019-05-18] MEDS: ASPIRIN PO SCH (08:50)
[2019-05-18] MEDS: PLAVIX PO SCH (08:50)
[2019-05-18] MEDS: NICODERM PATCH TD SCH (08:50)
[2019-05-18] MEDS: NEUTRA-PHOS PO SCH ×2 (08:50→13:10)
[2019-05-18] MEDS: THERA M PLUS PO SCH (08:50)
[2019-05-18] MEDS: NEURONTIN PO SCH (09:25)
[2019-05-18] MEDS: MORPHINE IV PRN (09:34)
[2019-05-18 11:22] VITALS: BP 114/53
--- NOTE | 2019-05-18 12:27 | DISCHARGE SUMMARY ---
ADMISSION DATE: 05/12/2019 DISCHARGE DATE: 05/18/2019 DISPOSITION: [facility]. CONSULTATION DURING ADMISSION: Neurology was consulted. Patient was seen by Dr. Castellano and followed up by Dr. Penaloza. INVASIVE PROCEDURES DONE DURING ADMISSION: None. IMAGING STUDIES OF SIGNIFICANCE: A CT scan of the chest showed chronic ischemic changes, small focus of subarachnoid hemorrhage. Subarachnoid bleeds present in the right parietal convex of uncertain significance. An MRI of the brain did show extensive chronic changes and old right parietal infarct. A chest x-ray reveals bibasilar atelectasis versus infiltrates. ADMISSION DIAGNOSES: 1. Questionable subarachnoid bleed. 2. Seizure activity. DIAGNOSES AT TIME OF DISCHARGE: 1. Altered mental status on presentation associated with abnormal movement of the right upper extremity, questionable for seizures. EEG was unremarkable for any epileptiform discharges. MRI did make mention of some chronic changes. 2. 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 3. 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 4. Electrolyte abnormality including hypokalemia and hypophosphatemia were all replaced. 5. Clinical volume depletion on admission improved. 6. Enterococcal faecalis urinary tract infection. Patient is on Levaquin for a total of 5 days. 7. Atrial fibrillation during the hospital course is rate controlled on Cardizem. The patient has CHADS Vasc score of at least 4. He has been started on low-dose Eliquis, and continue with the metoprolol and long-acting diltiazem. 8. History of coronary artery disease status post stent in LAD in the 2013, and subsequently in 2017. A left heart catheterization is documented to have shown about 50% stenosis. The patient is on aspirin and Plavix as well as statin and beta jailyn. However, because of adding Eliquis to the antithrombotic therapy, aspirin will be discontinued. PRESENTING COMPLAINT: Seizures, query syncopal episode. HISTORY OF PRESENTING COMPLAINT: Ms. Leone is an 83-year-old elderly female who was brought into the emergency room apparently because she has some shaking of the left upper extremity. Questionable also incontinent of bowel and bladder. She was evaluated and was suspected to have had possible seizures so she was admitted to the medical floor for further evaluation. HOSPITAL COURSE: Ms. Leone was admitted to the medical floor. She was found to be volume depleted. She was adequately fluid resuscitated. She did have some other electrolyte abnormalities including low potassium and low phosphorus, which were all replaced. A urine did come back positive for urinary tract infection, Enterococcus faecalis as the pathogen which was sensitive to levofloxacin. She was on IV Levophed for 2 days. We will continue 3 more days for a total of 5 days in the rehab. Ms. Leone was started on Keppra for the possible seizures. A CT scan did mention possible bleed. However, a follow-up MRI only showed extensive chronic ischemic changes, and also an old right parietal encephalomalacia from previous stroke. The patient was evaluated by Neurology. During the hospital course, Ms. Leone did not have any more seizures or any seizure-like activity. She has been tolerating her diet. It is documented that she takes about 75%. She has also had regular bowel movement during the hospital course. Ms. Leone has also been evaluated by physical therapy on multiple occasions. Today, Ms. Leone refers to be doing well. She says she wants to go home. She is still fairly confused to place and to person, but she is able to follow basic commands. I think she is back to her baseline. She seems to have moderate to severe dementia, which we think is a combination of Alzheimer's and vascular. She is on donepezil. She is going to be following up with Dr. Penaloza on an outpatient basis. Ms Leone herself is not able to comprehend all the discharge instructions. Everything will be transmitted to the rehab that she is going. TIME SPENT: The time spent for discharge is 38 minutes. cc: Dr. Ca Jacome MD
--- NOTE | 2019-05-18 20:21 | NEUROLOGY PROGRESS NOTE ---
DATE: 05/18/2019 SUBJECTIVE/OBJECTIVE: Ms. Leone is awake, alert, bright, attentive. She seems a little bit more cheerful and a little bit quicker to respond today. She continues disoriented. ASSESSMENT/PLAN: I do not have any new thoughts or new suggestions from a Neurology standpoint, and nothing to add to prior recommendations. I agree with plans for rehab. Thanks for asking us to see Ms. Leone. cc: Edda Penaloza III, MD
== END 2019-05-18 14:46 | DRG 101 ==
LOC: SUPCPDRO → ED 10:20 → EDIPHOLD 13:08 → SUATTDRO 13:08 → 3N 16:58
PROVIDERS: ATTEND Internal Medicine